=== PATIENT | female | born 1930 ===

== ENCOUNTER 2017-04-05 13:22 | Emergency (ER) | payer OTHER ==
[~2017-04-05] VITALS: Ht 152.4 cm; Wt 73.0 kg
[~2017-04-05 13:22] MED LIST: LISINOPRIL2.5 MG PO; NEURONTIN600 MG PO; PROTONIX40 MG PO; ULTRA
[2017-04-05] MEDS ORDERED: HUMALOG100 UNIT/1 (14:24)
[2017-04-05] MEDS ORDERED: LANTUS SOL100 UNIT/1 (14:24)
== END 2017-04-05 20:10 | disposition home or self-care (01) ==
LOC: ER 13:22
DX: M75.51 Bursitis of right shoulder (principal); M25.562 Pain in left knee

== ENCOUNTER → 2017-09-11 | Emergency (ER) | payer OTHER ==
[~2017-09-11] VITALS: Ht 165.1 cm; Wt 81.6 kg
[~2017-09-11] MED LIST changes: +HUMALOG100 UNIT/1; +LANTUS SOL100 UNIT/1
== END | disposition left against medical advice (07) ==
LOC: ER 11:50
DX: Z53.20 Procedure and treatment not carried out because of patient's decision for unspecified reasons (principal)

== ENCOUNTER → 2017-09-21 | Outpatient (CLI) | payer OTHER | END | disposition home or self-care (01) | LOC: NUCLEAR 07:00 | DX: I20.8 Other forms of angina pectoris (principal) | CPT/HCPCS: 78452; 93017; A9500; J0153 ==